=== PATIENT | male | born 1995 | race Caucasian/White ===

== ENCOUNTER 2022-09-26 10:11 | Outpatient (CLI) | payer OTHER | END 2022-09-26 10:58 | disposition home or self-care (01) | LOC: RAD 10:11 | DX: S62.91XA Unspecified fracture of right hand, initial encounter for closed fracture (principal) ==

== ENCOUNTER 2022-10-14 10:56 | Outpatient (CLI) | payer OTHER | END 2022-10-14 11:03 | disposition home or self-care (01) | LOC: RAD 10:56 | DX: M79.631 Pain in right forearm (principal); M79.632 Pain in left forearm; S62.91XD Unspecified fracture of right hand, subsequent encounter for fracture with routine healing; S62.92XD Unspecified fracture of left hand, subsequent encounter for fracture with routine healing ==

== ENCOUNTER 2022-12-17 09:47 | Outpatient (CLI) | payer OTHER | END 2022-12-17 09:59 | disposition home or self-care (01) | LOC: RAD 09:47 | PROVIDERS: ATTEND Orthopaedic Surgery | DX: S52.322A Displaced transverse fracture of shaft of left radius, initial encounter for closed fracture (principal) ==

== ENCOUNTER → 2023-01-14 | Outpatient (CLI) | payer OTHER | END | disposition home or self-care (01) | LOC: RAD 10:55 | DX: S52.322A Displaced transverse fracture of shaft of left radius, initial encounter for closed fracture (principal) ==

== ENCOUNTER 2024-03-26 06:29 | Day surgery (SDC) | payer OTHER ==
[2024-03-22 11:32] VITALS: BP 102/90
[2024-03-22 11:57] LABS: PH,URINE 6.5 (5.0-8.0); URINE APPEARANCE Clear; URINE BILIRRUBIN Negative (NEGATIVE); URINE BLOOD Negative; URINE COLOR Yellow; URINE GLUCOSE Negative (NEGATIVE); URINE KETONE Negative (NEGATIVE); URINE LEUKOCYTE Negative; URINE NITRATE Negative; URINE PROTEIN Negative (NEGATIVE); URINE UROBILINOGEN 0.2 E.U./dl
[2024-03-22 12:01] LABS: HEMATOCRIT 47.1 % (39.0-48.0); HEMOGLOBIN 16.3 g/dL (13-16.00); MEAN CELL VOLUME 85.7 fL (80.0-100.00); MEAN CORPUSCULAR HEMOGLOBIN 29.7 pg (27.00-32.0); MEAN CORPUSCULAR HGB CONC 34.6 g/dl (32.0-36.0); PLATELET COUNT 216 K/uL (150-450); RED BLOOD COUNT 5.49 M/uL (4.00-6.00); RED CELL DISTRIBUTION WIDTH 13.5 % (11.5-14.5)
[2024-03-22 12:04] LABS: URINE BACTERIA 7.5 uL (0.0-1933)
[2024-03-22 12:07] LABS: URINE EPITHELIAL CELLS 0.4 uL (0.0-38.8); URINE RBC 1.5 uL (0.0-20.8); URINE WBC 0.9 uL (0.0-23.2)
[2024-03-22 12:35] LABS: ALBUMIN 4.5 gm/dL (3.4-5.0); BILIRUBIN TOTAL 0.99 mg/dL (0.3-1.2); CALCIUM 9.9 mg/dL (8.5-10.1); CREATININE SERUM 0.89 mg/dL (0.70-1.30); GFR 101.06; GLOBULINA 3.1 G/DL (2.4-3.5); POTASSIUM 4.84 mEq/L (3.5-5.1); TOTAL PROTEIN 7.6 gm/dL (6.4-8.2)
[2024-03-22 12:37] LABS: PARTIAL THROMBOPLASTIN TIME 32.2 SECONDS (22.0-34.0); PROTHROMBIN TIME 10.9 SECONDS (9.0-11.5)
[~2024-03-26] VITALS: Ht 175.3 cm; Wt 89.8 kg
[~2024-03-26 06:29] MED LIST: SYNTHROID150 MCG PO
[2024-03-26] MEDS ORDERED: DEXAMETHASONE SODIUM PHOSPHATE 4 MG/ML VIAL IV ONE (10:45)
== END 2024-03-26 15:30 | disposition home or self-care (01) ==
LOC: CIR.AMB 06:29
PROVIDERS: ATTEND Surgery
DX: C73 Malignant neoplasm of thyroid gland (principal); E04.1 Nontoxic single thyroid nodule